=== PATIENT | female | born 1960 | race African-American/Black ===

== ENCOUNTER 2020-06-08 00:24 | Emergency (ER) | payer MEDICARE, OTHER ==
[~2020-06-08] VITALS: Ht 165.1 cm; Wt 63.5 kg
[2020-06-08] MEDS ORDERED: VENTOLIN HFA18 GM INH (00:38)
[2020-06-08] MEDS ORDERED: MONTELUKAST SOD10 MG ORAL (00:38)
[2020-06-08] MEDS ORDERED: ASPIRIN81 MG ORAL (00:38)
[2020-06-08] MEDS ORDERED: QVAR7.3 GM INH ×2 (00:38→00:59)
[2020-06-08] MEDS ORDERED: CLOPIDOGREL300 MG ORAL (00:38)
[2020-06-08] MEDS ORDERED: FAMOTIDINE20 MG ORAL (00:38)
[2020-06-08] MEDS ORDERED: ATORVASTATIN CA40 MG ORAL (00:38)
[2020-06-08 00:40] VITALS: BP 119/81
--- NOTE | 2020-06-08 00:40 | NUR ---
ED Nurse Note: Patient walked into ED with walker for c/o neck and back pain that has been an ongoing/chronic issue for her for many years. She states she has been unable to see a pain management doctor and has not been able to sleep due to the pain. No new trauma or injuries noted. Denies SOB, cough, CP. She is aaox4, breathing is normal and unlabored.
[2020-06-08] MEDS ORDERED: HYDROCODON-ACE1 EA15 ORAL (00:56)
[2020-06-08] MEDS ORDERED: PREDNISONE20 MG ORAL (00:56)
--- NOTE | 2020-06-08 00:56 | Emergency Room Report ---
History of Present Illness General Chief Complaint: Pain Source: Patient Present Illness HPI This is a 60-year-old male with a history of severe scoliosis and chronic pain. She presents with chief complaint of neck pain back pain. This is an ongoing problem for many years but worsened in the last few days. She is unable to sleep because of her pain. No new trauma. No nausea no vomiting. No urine. No fever. She has seen pain management in the past but has not received any narcotics. Pain is 9 out of 10. Worse with certain movement. Nothing made it better. Allergies: Coded Allergies: HYDROXYZINE (Verified Allergy, Unknown, 06/08/20) COVID-19 Screening Contact w/high risk pt: No Experienced COVID-19 symptoms?: No COVID-19 Testing performed DIGITAL STRATEGY DIRECTOR: No Patient History Past Medical History: see triage record, old chart reviewed Nursing Documentation-[facility] Past Medical History: No History, Except For Hx Asthma: Yes Review of Systems Eye: Denies: eye pain, blurred vision ENT: Denies: ear pain, nose congestion, throat swelling Respiratory: Denies: cough, shortness of breath Cardiovascular: Denies: chest pain, palpitations Gastrointestinal: Denies: abdominal pain, diarrhea, nausea, vomiting Musculoskeletal: Reports: back pain; Denies: joint pain Skin: Denies: rash Neurological: Reports: numbness; Denies: headache Endocrine: Denies: increased thirst, increased urine Hematologic/Lymphatic: Denies: easy bruising All Other Systems: negative except mentioned in HPI Physical Exam Vital Signs Date Time Temp Pulse Resp B/P (MAP) Pulse Ox O2 Delivery O2 Flow Rate FiO2 06/08/20 00:32 98.4 86 16 119/81 (94) 96 Room Air Vitals normal Sp02 EP Interpretation: reviewed, normal General Appearance: well appearing, no apparent distress, alert Head: normocephalic, atraumatic Eyes: bilateral eye PERRL, bilateral eye EOMI ENT: hearing grossly normal, normal pharynx Neck: full range of motion, supple, no meningismus Respiratory: chest non-tender, lungs clear, normal breath sounds Cardiovascular #1: regular rate, rhythm, no murmur Gastrointestinal: normal bowel sounds, non tender, no mass, no organomegaly, no bruit, non-distended Musculoskeletal: normal range of motion, gait/station normal, other - There is scoliosis Psychiatric: mood/affect normal Medical Decision Making Diagnostic Impression: Primary Impression: Exacerbation of chronic back pain ER Course Patient resents with exacerbation of chronic pain. No evidence of cauda equina syndrome, spinal epidural abscess or neoplastic process. Last Vital Signs Date Time Temp Pulse Resp B/P (MAP) Pulse Ox O2 Delivery O2 Flow Rate FiO2 06/08/20 00:32 98.4 86 16 119/81 (94) 96 Room Air Status: improved Disposition: HOME, SELF-CARE Condition: Stable Scripts Prednisone* (PREDNISONE*) 20 Mg Tablet 40 MG ORAL DAILY for 7 Days, TAB Prov: Alexander Erwin MD 06/08/20 Hydrocodone/Acetaminophen 5-325* (HYDROCODONE/ACETAMINOPHEN 5-325*) 1 Each Tablet 1 TAB ORAL Q6H PRN for For Pain, #30 TAB 0 Refills Prov: Alexander Erwin MD 06/08/20 Referrals: NON PHYSICIAN (PCP) Additional Instructions: Follow-up with your doctor in 7 days but return if worse. Alexander Erwin MD Jun 08, 2020 00:56
[2020-06-08] MEDS ORDERED: SINGULAIR10 MG ORAL (00:59)
[2020-06-08] MEDS ORDERED: Ketorolac 60mg Inj IM ONE (01:00)
[2020-06-08 01:10] VITALS: BP 118/76
--- NOTE | 2020-06-08 01:10 | NUR ---
ER DISCHARGE NOTE: Patient is cleared to be discharged per ERMD, pt is aox4, on room air, with stable vital signs. pt was given dc and prescription instructions, pt was able to verbalize understanding, pt id band removed. pt is able to ambulate with steady gait. pt took all belongings.
== END 2020-06-08 01:10 | disposition home or self-care (01) ==
LOC: EMR 00:47
DX: G89.29 Other chronic pain (principal); M54.9 Dorsalgia, unspecified; J45.909 Unspecified asthma, uncomplicated; Z88.8 Allergy status to other drugs, medicaments and biological substances
CPT/HCPCS: 96372; 99283